=== PATIENT | female | born 1975 | race Caucasian/White ===

== ENCOUNTER 2020-10-10 11:26 | Emergency (ER) | payer MEDICAID ==
[~2020-10-10] VITALS: Ht 167.6 cm; Wt 95.1 kg
[2020-10-10 11:32] VITALS: BP 124/77
== END 2020-10-10 11:56 | disposition home or self-care (01) ==
LOC: ER 11:27
DX: Z02.89 Encounter for other administrative examinations (principal); F15.90 Other stimulant use, unspecified, uncomplicated; F17.200 Nicotine dependence, unspecified, uncomplicated
CPT/HCPCS: 99281

== ENCOUNTER 2022-05-23 17:27 | Emergency (ER) | payer MEDICAID ==
[~2022-05-23] VITALS: Ht 167.6 cm; Wt 97.3 kg
[2022-05-23 17:41] VITALS: BP 116/78
[2022-05-23] MEDS ORDERED: PENICILLIN G BENZATHINE 2,400,000 UNIT/4 ML SYRINGE IM ONE (18:30)
== END 2022-05-23 19:07 | disposition home or self-care (01) ==
LOC: ER 17:29
DX: Z02.89 Encounter for other administrative examinations (principal); A53.9 Syphilis, unspecified; F15.90 Other stimulant use, unspecified, uncomplicated
CPT/HCPCS: 96372; 99283; J0561

== ENCOUNTER 2023-12-18 18:34 | Emergency (ER) | payer MEDICAID ==
[~2023-12-18] VITALS: Ht 167.6 cm; Wt 63.6 kg
[2023-12-18] MEDS ORDERED: DOXY-1 PO (20:36)
[2023-12-18] MEDS ORDERED: OMEP40CA21 PO (20:36)
[2023-12-18 20:50] VITALS: BP 107/57; PULSE 124; RESP 18; O2SAT 99
[2023-12-18 20:53] VITALS: TEMP 98.9
== END 2023-12-18 20:55 | disposition home or self-care (01) ==
LOC: ER 18:35
DX: A53.9 Syphilis, unspecified (principal); F15.90 Other stimulant use, unspecified, uncomplicated
CPT/HCPCS: 99282

== ENCOUNTER 2025-08-08 23:20 | Emergency (ER) | payer MEDICAID ==
[~2025-08-08] VITALS: Ht 167.6 cm; Wt 71.7 kg
--- NOTE | 2025-08-08 23:38 | ELECTROCARDIOGRAPH REPORT ---
[facility] Test Date: 2025-08-08 Test Time: 23:36:28 Pat Name: JAVID PHILIP Department: [facility]-ER Patient ID: [facility]-[id number] Room: Gender: F Branch Office Manager: : 1975 Requested By: DIPESH PRATT Order Number: [id number] Reading MD: Dr. MADELYN Morales Measurements Intervals [place] Rate: 122 P: 69 VA: 127 QRS: 68 QRSD: 90 T: 59 QT: 313 QTc: 446 Interpretive Statements Sinus tachycardia LAE, consider biatrial enlargement Baseline wander in lead(s) V1 Electronically Signed On 08-10-2025 18:09:[address] MADELYN Morales Please click the below link to view image of tracing.
--- NOTE | 2025-08-09 01:03 | Physician Documentation ---
History of Present Illness ~ Chief Complaint: Medical Clearance Stated Complaint: REQUESTING MEDICAL CLEARANCE Time Seen by MD: 00:54 HPI Patient presents to the emergency room for medical clearance for rehab facility. They were concerned about a fast heart rate. Patient reports a history of fast heart rate. She denies any symptoms. Tetanus within 5 years?: Yes Medication Reconciliation Allergies: Coded Allergies: No Known Allergies (Unverified , 12/18/23) Past Medical History Past Medical History: No Pertinent History Past Surgical History: no surgical history Drug Use: methamphetamine Review of Systems ROS All review of systems negative except as per HPI Physical Exam Vital Signs: Temperature: 98.6, Source: Oral, Heart Rate: 113, Respiratory Rate: 18, BP: 141/66, Pulse Oximetry: 98, Weight: 71.700 Oxygen Flow Rate: 0 Physical Exam General: Patient is awake, alert, oriented x4 in no acute distress Head: Normocephalic and atraumatic. Eyes: Conjunctival normal. EOMI. PERRL. ENT: Mucous membranes moist. Neck: Supple, trachea is midline. Chest: Clear to auscultation bilaterally without rales, rhonchi, or wheezes. There is no accessory muscle use or retractions. Cardiac: Tachycardic and regular without murmurs, gallops, or rubs. Abd: Soft, nondistended, nontender, with normoactive bowel sounds. No guarding, rebound, or rigidity. Progress Results/Orders Results/Orders Vital Signs 08/08/25 08/09/25 23:22 00:44 Temp 97.6 98.6 Pulse 126 113 Resp 20 18 B/P (MAP) 141/66 Pulse Ox 99 98 O2 Flow Rate 0 EKG/XRAY/CT/US/VASC/MRI EKG : Additional Comment EKG interpreted by myself shows time of 11/18/2035, rate 122, sinus tachycardia, normal axis, no ST changes Medical Decision Making Additional information obtaine: old records Findings Patient presents to the emergency room with fast heart rate. Differentials include but are not limited to dehydration, drug intoxication, thyroid disorder, physiologic response to pain. EKG shows sinus rhythm with fast heart rate. Patient's heart rate that has spontaneously improved during her stay in the emergency room. Upon review of patient's old records she has history of tachycardia and I do not feel she requires emergent investigation. Blood pressures are reassuring and we will clear patient for rehab Differential Dx:Considerations: Include: Intoxication-Alcohol, Intoxication- Other drug, Personality disorder, Substance abuse disorder, Acute delirium, Closed head injury, Cervical spine injury, Skull fracture, Fracture(s), Abrasion, Contusion, Foreign body, Hematoma, Laceration, Alcohol withdrawl syndrom, Encephalopathy, Hepatitis, Medically stable, Other Departure Disposition: HOME / SELF CARE / HOMELESS Impression: Primary Impression: Tachycardia Condition: Improved Discharge Instructions: Sinus Tachycardia Additional Instructions: Patient presented with fast heart rate in the 120s which spontaneously improved. She has known history of fast heart rate. EKGs reassuring. Patient is medically cleared for rehab facility Referrals: NO PRIMARY CARE PROVIDER (PCP) Signature Scribe Signature: No scribe Attestation: The note accurately reflects work and decisions made by me.Maicol Ramires MD 08/09/25 01:04 MAICOL RAMIRES MD Aug 09, 2025 01:03
[2025-08-09 01:09] VITALS: BP 140/72; PULSE 112; RESP 18; TEMP 98.6; O2SAT 99
== END 2025-08-09 01:10 | disposition home or self-care (01) ==
LOC: ER 23:21
DX: R00.0 Tachycardia, unspecified (principal)
CPT/HCPCS: 93005; 99283